=== PATIENT | female | born 1935 | race Caucasian/White ===

== ENCOUNTER → 2016-12-08 | Outpatient (CLI) | payer OTHER ==
[~2016-12-08] MED LIST: BENAZEPRIL HCL20 MG PO; CRESTOR20 MG PO; HYDROCHLOROTH12.5 M3 PO; JANUVIA25 MG PO; ZETIA10 MG PO
== END | disposition home or self-care (01) ==
LOC: AMB 07:16
PROC: 0HB3XZZ Excision of Left Ear Skin, External Approach (ICD-10-PCS; principal; 2016-12-08)
DX: C44.219 Basal cell carcinoma of skin of left ear and external auricular canal (principal); Z85.820 Personal history of malignant melanoma of skin
CPT/HCPCS: 88305